=== PATIENT | male | born 1990 | race Caucasian/White ===

== ENCOUNTER 2023-10-11 01:20 | Emergency (ER) | payer OTHER ==
[2023-10-11 01:56] VITALS: BP 145/94; O2SAT 98
--- NOTE | 2023-10-11 02:12 | ED Physician Documentation ---
PD HPI OPHTHO - Stated complaint Stated Complaint: SKIN TAG UNDER R EYE - Chief complaint Chief Complaint: Heent - History obtained from History obtained from: Patient - Additional information Additional information: 33yM, non contact lens wearer, p/w R lower inner eyelid pain and small area of swelling along the tarsal plate of lower eyelid. denies foreign body. denies vision changes or pain sensation to the eye itself. PD PAST MEDICAL HISTORY - Past Medical History Past Medical History: No - Past Surgical History Past Surgical History: Yes Ortho: Other - Present Medications Home Medications: Ambulatory Orders Medication Instructions Recorded Confirmed Mineral Oil/Petrolatum,White 3.5 gm OP QPM 7 Days #3.5 gm 10/11/23 [Lubricant Pm Eye Ointment] - Allergies Allergies/Adverse Reactions: Allergies Allergy/AdvReac Type Severity Reaction Status Date / Time No Known Drug Allergies Allergy Verified 10/11/23 01:38 - Social History Does the pt smoke?: No Smoking Status: Never smoker Does the pt drink ETOH?: No Does the pt have substance abuse?: No PD ED PE NORMAL - Vitals Vital signs reviewed: Yes - General General: Alert and oriented X 3, No acute distress, Well developed/nourished - HEENT HEENT: Atraumatic, PERRL, EOMI, Other (meibomian gland mild swelling without erythema along mid-tarsal plate of the lower eyelid on the right eye) Results - Vitals Vitals: Vital Signs - 24 hr 10/11/23 01:33 Temperature 36.4 C L Heart Rate 82 Respiratory 16 Rate Blood Pressure 145/94 H O2 Saturation 98 Oxygen O2 Source Room air PD Medical Decision Making - ED course ED course: 33yM p/w pain to R tarsal plate 2/2 single meibomian gland that appears blocked. submillimeter in size with no erythema. no evidence of infection. Proparacaine provided with improvement in symptoms. symptomatic care discussed. Departure - Departure Disposition: 01 Home, Self Care Clinical Impression: Meibomian gland cyst Condition: Stable Instructions: ED Meibomitis Comments: You were seen in the emergency department for meibomian gland dysfunction, which is usually a benign condition that self resolves. Reasons to return to the emergency department or if you have vision changes, if it does not resolve within 3 to 4 days, if you start to experience increased swelling and redness to the area, or if you have other concerns. Please follow-up outpatient with optometry or ophthalmology.
== END 2023-10-11 02:20 | disposition home or self-care (01) ==
LOC: ED 01:20
DX: H02.882 Meibomian gland dysfunction right lower eyelid (principal)
CPT/HCPCS: 99282; 99283